=== PATIENT | male | born 1995 | race Caucasian/White ===

== ENCOUNTER 2017-08-16 01:54 | Emergency (ER) | payer BC ==
[~2017-08-16] VITALS: Ht 177.8 cm; Wt 63.2 kg
[2017-08-16 01:58] VITALS: TEMP 36.6; Ht 177.8 cm; Wt 63.2 kg
[2017-08-16 03:08] LABS: URINE APPEARANCE CLEAR (CLEAR); URINE BILIRUBIN NEG (NEG); URINE COLOR YELLOW; URINE NITRITE NEG (NEG); URINE SPECIFIC GRAVITY 1.013 (1.000-1.030); UROBILINOGEN NEG (NEG); ZZUR CULT IF INDIC CLEAN CATCH NO
[2017-08-16 03:14] LABS: BASO % 0.3 %; BASO ABS # 0.04 K/uL (0-0.2); COMPLETE YES; EOS % 0.6 %; HEMATOCRIT 41.4 % (42-52); IG% 0.4 %; LYMPH % 13.1 %; LYMPH ABS # 1.52 K/uL (1.2-3.4); MANUAL MICROSCOPIC REQUIRED? NO; MEAN CELL VOLUME 93.7 fL (80-100); MEAN CORPUSCULAR HGB CONC 35.3 g/dl (32-36); MEAN PLATELET VOLUME 9.1 fL (7.4-10.4); MONO % 10.8 %; NEUT % 74.8 %; PLATELET COUNT 356 K/uL (130-400); RED BLOOD COUNT 4.42 M/uL (4.7-6.1); REVIEW REQ? NO; WHITE BLOOD COUNT 11.62 K/uL (4.8-10.8)
[2017-08-16 03:30] LABS: CALCIUM 9.3 mg/dl (8.5-10.1); CREATININE 0.98 mg/dl (0.60-1.40); POTASSIUM 3.4 mmol/L (3.5-5.1)
[2017-08-16 03:33] LABS: ALB/GLOB RATIO 0.9 (0.9-2)
[2017-08-16] MEDS ORDERED: SODIUM CHLORIDE 0.9% 1000ML 1,000 ML IV STA (04:19)
[2017-08-16 04:58] LABS: MAGNESIUM 2.6 mg/dl (1.8-2.4)
[2017-08-16 05:28] LABS: BENZODIAZEPINE, URINE NEG (NEG); COCAINE,URINE POS (NEG); PHENCYCLIDINE, URINE NEG (NEG)
--- NOTE | 2017-08-16 07:03 | EMERGENCY ROOM VISIT NOTE ---
History Report prepared by Josselin: Saray Guerin Under the Supervision of: Dr. Marianna Resendez D.O. First contact with patient: 04:00 Chief Complaint: SEIZURE Stated Complaint: SEIZURE Nursing Triage Summary: pt states he said he went back to his room to watch the game and had a mini seizure no hx. friend was with him and whitnessed it. lasted about 3-4 min. occured earlier and ems was at scene. History of Present Illness The patient is a 22 year old male who presents to the Emergency Room with complaints of an episode of seizure around 2339 today. The patient is here with his friends who were with him at the time of the seizure. They note that the patient had not sleep very well the night before. Today he had been drinking all day. He was not acting abnormally throughout the day. Around 2339, he was in his room with his friends when he stopped talking mid sentence and seemed to lose his breath. He then clenched up and became stiff. The friend held onto him to stop him from injuring himself. He stayed stiff for 3-4 minutes before stopping. He then seemed to be trying to catch his breath. His eyes were open, but he was not responding. He had some bleeding from his mouth. After some time , he started to follow commands. He squeezed his friend's finger when he was asked. 30 minutes later when EMS arrived, he was answering questions, but his answers were incorrect. His friend notes that they did cocaine over the weekend. He has used cocaine before. He has had a cough recently. He denies any dizziness, lightheadedness, nausea, vision changes, diarrhea, or urinary symptoms. He does not have a history of seizures. He does not think he has a family history of seizures. Source of History: patient, friend Onset: 2339 Position: other (global) Quality: other (seizure) Timing: other (episodic) Associated Symptoms: + cough, No nausea, No diarrhea, No urinary symptoms Note: Pt denies dizziness, lightheadedness, vision changes. Review of Systems See HPI for pertinent positives & negatives. A total of 10 systems reviewed and were otherwise negative. Past Medical & Surgical Medical Problems: (1) No Known Active Medical Problems Surgical Problems: (1) S/P ACL reconstruction Family History No pertinent family history stated. Social History Smoking Status: Current Every Day Smoker Occupation Status: student Current/Historical Medications No Active Prescriptions or Reported Meds Allergies Coded Allergies: No Known Allergies (Unverified , 08/16/17) Physical Exam Vital Signs Date Time Temp Pulse Resp B/P (MAP) Pulse Ox O2 Delivery O2 Flow Rate FiO2 08/16/17 09:06 61 20 103/60 97 08/16/17 08:28 59 20 109/61 98 Room Air 08/16/17 06:30 114/72 08/16/17 06:16 56 08/16/17 06:14 56 20 96 08/16/17 06:09 56 20 95 08/16/17 06:01 105/51 08/16/17 05:39 61 16 106/55 97 08/16/17 05:34 54 14 106/55 98 08/16/17 05:04 50 16 08/16/17 04:04 65 20 96 08/16/17 03:59 63 96 08/16/17 03:29 59 97 08/16/17 02:59 66 19 97 08/16/17 02:54 68 15 97 08/16/17 02:24 71 18 97 08/16/17 02:22 80 08/16/17 02:16 136/66 08/16/17 01:58 36.6 90 18 117/70 96 Room Air Physical Exam GENERAL: confused, well appearing, well nourished, no distress, non-toxic EYE EXAM: normal conjunctiva, PERRL and EOM's grossly intact OROPHARYNX: no exudate, no erythema, lips, buccal mucosa, and tongue normal and mucous membranes are moist, small contusion noted to the right lateral tongue NECK: supple, no nuchal rigidity, no adenopathy, non-tender LUNGS: Clear to auscultation. Normal chest wall mechanics, no w/r/r HEART: no murmurs, S1 normal and S2 normal ABDOMEN: abdomen soft, non-tender, normo-active bowel sounds, no masses, no rebound or guarding. BACK: Back is symmetrical on inspection and there is no deformity, no midline tenderness, no CVA tenderness. SKIN: no rashes and no bruising UPPER EXTREMITIES: upper extremities are grossly normal. FROM, nml pulses. LOWER EXTREMITIES: No pitting edema. FROM, nml pulses. NEURO EXAM: Normal sensorium, cranial nerves II-XII intact, normal speech, no weakness of arms, no weakness of legs. No drift. Finger to nose intact. Gross sensation intact. Medical Decision & Procedures ER Provider Diagnostic Interpretation: Xray results have been interpreted by me. Chest X-ray: No cardiomegaly. No effusion. No wide mediastinum. No focal infiltrate. No pulmonary edema. Radiology results have been interpreted by the [facility] radiologist and reviewed by me. CT Head: Impression: No acute intracranial hemorrhage, territorial infarct, mass, midline shift or extra-axial fluid collection Comment: Ventricles sulci and cisterns are normal No midline shift Allen-white matter differentiation is maintained No intraparenchymal hemorrhage No extra axial fluid collection Posterior fossa is normal Calvarium is intact Sinuses are clear Soft tissues are normal Laboratory Results 08/16/17 02:19 Red Blood Count 4.42, Mean Corpuscular Volume 93.7, Mean Corpuscular Hemoglobin 33.0, Mean Corpuscular Hemoglobin Concent 35.3, Mean Platelet Volume 9.1, Neutrophils (%) (Auto) 74.8, Lymphocytes (%) (Auto) 13.1, Monocytes (%) (Auto) 10.8, Eosinophils (%) (Auto) 0.6, Basophils (%) (Auto) 0.3, Neutrophils # (Auto ) 8.69, Lymphocytes # (Auto) 1.52, Monocytes # (Auto) 1.25, Eosinophils # (Auto ) 0.07, Basophils # (Auto) 0.04 08/16/17 02:19 Test 08/16/17 02:19 08/16/17 04:31 White Blood Count 11.62 K/uL (4.8-10.8) Red Blood Count 4.42 M/uL (4.7-6.1) Hemoglobin 14.6 g/dL (14.0-18.0) Hematocrit 41.4 % (42-52) Mean Corpuscular Volume 93.7 fL (80-100) Mean Corpuscular Hemoglobin 33.0 pg (25-34) Mean Corpuscular Hemoglobin Concent 35.3 g/dl (32-36) Platelet Count 356 K/uL (130-400) Mean Platelet Volume 9.1 fL (7.4-10.4) Neutrophils (%) (Auto) 74.8 % Lymphocytes (%) (Auto) 13.1 % Monocytes (%) (Auto) 10.8 % Eosinophils (%) (Auto) 0.6 % Basophils (%) (Auto) 0.3 % Neutrophils # (Auto) 8.69 K/uL (1.4-6.5) Lymphocytes # (Auto) 1.52 K/uL (1.2-3.4) Monocytes # (Auto) 1.25 K/uL (0.11-0.59) Eosinophils # (Auto) 0.07 K/uL (0-0.5) Basophils # (Auto) 0.04 K/uL (0-0.2) RDW Standard Deviation 47.2 fL (36.4-46.3) RDW Coefficient of Variation 13.8 % (11.5-14.5) Immature Granulocyte % (Auto) 0.4 % Immature Granulocyte # (Auto) 0.05 K/uL (0.00-0.02) Urine Color YELLOW Urine Appearance CLEAR (CLEAR) Urine pH 7.0 (4.5-7.5) Urine Specific [place] 1.013 (1.000-1.030) Urine Protein NEG (NEG) Urine Glucose (UA) NEG (NEG) Urine Ketones NEG (NEG) Urine Occult Blood NEG (NEG) Urine Nitrite NEG (NEG) Urine Bilirubin NEG (NEG) Urine Urobilinogen NEG (NEG) Urine Leukocyte Esterase NEG (NEG) Anion Gap 7.0 mmol/L (3-11) Est Creatinine Clear Calc Drug Dose 107.5 ml/min Estimated GFR () 128.1 Estimated GFR (Non- 110.5 BUN/Creatinine Ratio 14.0 (10-20) Calcium Level 9.3 mg/dl (8.5-10.1) Magnesium Level 2.6 mg/dl (1.8-2.4) Total Bilirubin 0.5 mg/dl (0.2-1) Aspartate Amino Transf (AST/SGOT) 25 U/L (15-37) Alanine Aminotransferase (ALT/SGPT) 22 U/L (12-78) Alkaline Phosphatase 78 U/L (45-117) Total Protein 8.0 gm/dl (6.4-8.2) Albumin 3.8 gm/dl (3.4-5.0) Globulin 4.2 gm/dl (2.5-4.0) Albumin/Globulin Ratio 0.9 (0.9-2) Urine Opiates Screen NEG (NEG) Urine Methadone, Qualitative NEG (NEG) Urine Barbiturates NEG (NEG) Urine Phencyclidine (PCP) Level NEG (NEG) Ur Amphetamine/Methamphetamine NEG (NEG) MDMA (Ecstasy) Screen POS (NEG) Urine Benzodiazepines Screen NEG (NEG) Urine Cocaine Metabolite POS (NEG) Urine Marijuana (THC) POS (NEG) Ethyl Alcohol mg/dL < 3.0 mg/dl (0-3) Laboratory results per my review. Medications Administered Medications (Trade) Dose Ordered Sig/David Route Start Time Stop Time Status Last Admin Dose Admin Sodium Chloride 1,000 ml @ 999 mls/hr Q1H1M STAT IV 08/16/17 04:19 08/16/17 05:19 DC 08/16/17 04:50 999 MLS/HR ECG Indication: altered mental status Rate (beats per minute): 68 Rhythm: sinus rhythm Findings: no acute ischemic change, no ectopy, other (normal axis, normal intervals) ED Course 0409: The patient was evaluated in room C9. A complete history and physical exam was performed. 0419: NSS 1000 ml @ 999 mls/hr IV. 0628: I reevaluated the patient. He is sleeping. Vital signs are stable. 0657: I reevaluated the patient. He is resting. Vitals stable. [place] drivers license form was filled out. 0839: Patient awake, alert, answering all questions appropriately. Discussed all results with patient. Discussed need for close follow-up with neurology. Discussed patient is not to drive until he is seen and cleared by neurology. Discussed substance abuse. Patient advise do not use recreational drugs or alcohol until he is seen and evaluated by neurology. Discussed with him symptoms to watch and return for, he verbalized understanding was agreeable with plan. Medical Decision Differential diagnosis includes etiologies such as infection, hypoglycemia, electrolyte abnormalities, cardiac sources, intracerebral event, trauma, toxicologic, neurologic, as well as others were entertained. Patient with history of reported substance abuse, alcohol use as well as sleep deprivation this weekend. Likely these were contributing factors to a first- time seizure. No family history of seizures the patient is aware of. Patient with no recurrent seizure activity here, monitor for several hours as a precaution. Vital signs stable, other labs and imaging reassuring. Discussed with patient no driving, need for neurology follow-up and evaluation, strongly cautioned the patient against any recreational drug use or alcohol use. Discussed with patient symptoms to watch and return for, he verbalized understanding was agreeable with plan. Patient well appearing here at time of discharge, tolerating by mouth, ambulated with a steady gait. Medication Reconcilliation Current Medication List: was personally reviewed by me Blood Pressure Screening Patient's blood pressure: Normal blood pressure Impression Primary Impression: Seizure Additional Impression: Substance abuse Scribe Attestation The scribe's documentation has been prepared under my direction and personally reviewed by me in its entirety. I confirm that the note above accurately reflects all work, treatment, procedures, and medical decision making performed by me. Departure Information Dispostion Home / Self-Care Prescriptions No Active Prescriptions or Reported Meds Referrals Sary Zapien M.D. (PCP) Patient Instructions My [facility] Additional Instructions Please do not use illegal drugs. Use of illegal drugs can result in long-term health complications, incarceration, and even . Illegal drugs can also contribute to seizures. Please follow up with neurology regarding the isolated seizure today. You will need additional testing by them. You may not drive or operate heavy machinery until you're seen and evaluated by neurology. If you have any recurrent episodes of seizure, develop vomiting, headaches, vision changes, dizziness, numbness or tingling, chest pain, trouble breathing, worsening cough, or you have any other new concerns, please return the emergency room. Please make sure you're getting adequate sleep every night. Sleep deprivation can contribute to an increased risk of seizures also. Please drink plenty of fluids, you may eat normally. Problem Qualifiers
--- NOTE | 2017-08-16 08:51 | DIAGNOSTIC IMAGING REPORT ---
CHEST ONE VIEW PORTABLE CLINICAL HISTORY: cough SEIZURE COMPARISON STUDY: No previous studies for comparison. FINDINGS: The cardiac and mediastinal contours are normal. There is no evidence of focal pulmonary consolidation. There is no evidence of failure. No pleural effusions are visualized.[ IMPRESSION: No active disease in the chest. Electronically signed by: John Eaton M.D. 08/16/2017 8:50 AM Dictated Date/Time: 08/16/2017 8:50 AM
--- NOTE | 2017-08-16 09:02 | DIAGNOSTIC IMAGING REPORT ---
CT HEAD WITHOUT CONTRAST (CT) CLINICAL HISTORY: seizure COMPARISON STUDY: No previous studies for comparison. TECHNIQUE: Axial CT of the brain is performed from the vertex to the skull base. IV contrast was not administered for this examination. A dose lowering technique was utilized adhering to the principles of ALARA. CT DOSE: 614.27 mGy.cm FINDINGS: No intra or extra-axial mass lesions are visualized. There is no CT evidence of acute cortical infarction. There is no evidence of midline shift. There is no acute hemorrhage. No calvarial fractures are visualized. There are patchy white matter hypodensities likely on a small vessel basis. There is no evidence of pathologic ventricular dilatation. There is a prominent cisterna magna. There is no evidence of acute sinusitis IMPRESSION: Normal noncontrast head CT. Electronically signed by: John Eaton M.D. 08/16/2017 9:00 AM Dictated Date/Time: 08/16/2017 8:59 AM
[2017-08-16 09:06] VITALS: BP 103/60; PULSE 61; O2SAT 97
== END 2017-08-16 09:08 | disposition home or self-care (01) ==
LOC: C.EDB 01:57 → C.EDC 09:08
DX: R56.9 Unspecified convulsions (principal); F19.10 Other psychoactive substance abuse, uncomplicated; F17.210 Nicotine dependence, cigarettes, uncomplicated